=== PATIENT | female | born 1990 | race Caucasian/White ===

== ENCOUNTER 2020-10-12 13:02 | Emergency (ER) | payer SELFPAY ==
--- NOTE | 2020-10-12 13:37 | RAD ---
EXAM DESCRIPTION: Chest,2 Views CLINICAL HISTORY: feel of foreign body in esophagous COMPARISON: None TECHNIQUE: PA/lateral FINDINGS: Bilateral breast implants are present. No acute appearing cardiac or pulmonary abnormality. Heart size is normal with normal pulmonary vascularity. No pleural effusion or pneumothorax. Lungs are clear with no consolidating infiltrate. Lung volumes are prominent. Lateral view shows intact sternum and T-spine. No radiopaque foreign body is identified. IMPRESSION: No acute process is identified in the chest. Electronically signed by: Jin Red MD 10/12/2020 1:35 PM [employer]
[2020-10-12] MEDS ORDERED: ALUM & MAG HYDROX-SIMETHICONE 30 ML, LIDOCAINE VISCOUS 2% 15 ML PO ONE ×2 (13:43)
--- NOTE | 2020-10-12 14:47 | ED.PDOC ---
History of Present Illness - General Chief Complaint: GI Problem Stated Complaint: patient feels like food stuck in throat Time Seen by Provider: 10/12/20 13:17 Source: patient Exam Limitations: no limitations - History of Present Illness Initial Comments: The patient is a 30-year-old female presented emergency room secondary to the sensation that she feels like something is hung up in her esophagus. This started last night when the patient was eating fried chicken. She does not think that she swallowed any bones. She has been able to tolerate liquids and pured s tuff without any vomiting. She has not tried more solid things this point. No difficulty with liquids. No fever. No real chest pain. The GI cocktail given here did help second symptoms significantly. She is not dehydrated. She is not febrile. She does not look toxic. The patient is very anxious over this and admits that. Timing/Duration: other - 18 hours Severity: mild Improving Factors: nothing Worsening Factors: nothing Associated Symptoms: chest pain Allergies/Adverse Reactions: Allergies NO KNOWN ALLERGY Allergy (Verified 10/12/20 13:28) Home Medications: Ambulatory Orders Levothyroxine Sodium [Synthroid] 137 mcg PO 10/12/20 Review of Systems - Review of Systems Constitutional: States: no symptoms reported EENTM: States: no symptoms reported Respiratory: States: no symptoms reported Cardiology: States: chest pain - See above Gastrointestinal/Abdominal: States: see HPI Genitourinary: States: no symptoms reported Musculoskeletal: States: no symptoms reported Skin: States: no symptoms reported Neurological: States: no symptoms reported Endocrine: States: no symptoms reported All other Systems: No Change from Baseline Past Medical History (General) - Patient Medical History Hx Seizures: No Hx Stroke: No Hx Dementia: No Hx Asthma: No Hx of COPD: No Hx Cardiac Disorders: No Hx Congestive Heart Failure: No Hx Pacemaker: No Hx Hypertension: No Hx Thyroid Disease: Yes Hx Diabetes: No Hx Gastroesophageal Reflux: No Hx Renal Disease: No Hx Cancer: Yes Hx of HIV: No Hx Hepatitis C: No Hx MRSA: No - Vaccination History Hx Tetanus, Diphtheria Vaccination: No Hx Influenza Vaccination: No Hx Pneumococcal Vaccination: No - Social History Hx Tobacco Use: Yes Hx Alcohol Use: Yes Hx Substance Use: No Hx Substance Use Treatment: No Hx Depression: No Family Medical History - Family History Mother Family History: Unknown Living Status: Unknown Physical Exam - Physical Exam General Appearance: Alert, Anxious, No apparent distress Eye Exam: bilateral normal Ears, Nose, Throat: hearing grossly normal, normal pharynx Neck: full range of motion, supple Respiratory: lungs clear, normal breath sounds, no respiratory distress, no accessory muscle use Cardiovascular/Chest: normal peripheral pulses, regular rate, rhythm, no edema Peripheral Pulses: radial,right: 2+, radial,left: 2+ Gastrointestinal/Abdominal: non tender, soft Rectal Exam: deferred Back Exam: normal inspection, no CVA tenderness Extremity: normal range of motion, non-tender, normal inspection, no pedal edema, normal capillary refill 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 The patient is actually passing liquids quite well and the GI cocktail did improve her symptoms. I believe she most likely scratched the esophagus with something that she swallowed last night. No obstructive symptoms at this time. She should expect to have the sensation for another 2 to 3 days and then improved significantly. Obviously if pain is worsening or she starts vomiting or she starts having fevers, then additional work-up would be warranted. I would recommend if those were to occur that she follow-up at a larger hospital where an upper endoscopy could be done. Liquid Maalox may also help with symptoms. Avoid hot or spicy items. Avoid hard items. ER warnings are given. Keep routine follow-up with primary care doctor otherwise. [email or web address] - Results/Orders Results/Orders: Chest x-ray shows no acute pathology. No obvious foreign body. - EKG/XRAY/CT CT Ordered: No CT Interpretation Call Back: No Departure - Departure Clinical Impression: Esophagitis Disposition: Discharge to Home or Self Care Condition: Fair Departure Forms: ED Discharge - Pt. Copy, Patient Portal Self Enrollment Diet: other Activity: increase activity as tolerated Home Medications: Ambulatory Orders Levothyroxine Sodium [Synthroid] 137 mcg PO 10/12/20 Additional Instructions: The patient is a 30-year-old female presented to emergency room secondary to having a feeling of something stuck in her esophagus. The patient is actually passing liquids quite well and the GI cocktail did improve her symptoms. I believe she most likely scratched the esophagus with something that she swallowed last night. No obstructive symptoms at this time. She should expect to have the sensation for another 2 to 3 days and then improved significantly. Obviously if pain is worsening or she starts vomiting or she starts having fevers, then additional work-up would be warranted. I would recom mend if those were to occur that she follow-up at a larger hospital where an upper endoscopy could be done. Liquid Maalox may also help with symptoms. Avoid hot or spicy items. Avoid hard items. ER warnings are given. Keep routine follow-up with primary care doctor otherwise.
[2020-10-12 15:03] VITALS: BP 134/92; TEMP 98; O2SAT 95
== END 2020-10-12 15:03 | disposition home or self-care (01) ==
LOC: ER 13:02
DX: K20.90 Esophagitis, unspecified without bleeding (principal); E07.9 Disorder of thyroid, unspecified; Z87.891 Personal history of nicotine dependence; Z85.9 Personal history of malignant neoplasm, unspecified